=== PATIENT | female | born 1950 | race Caucasian/White ===

== ENCOUNTER → 2021-05-26 | Outpatient (CLI) | payer OTHER ==
--- NOTE | 2021-06-04 12:38 | PF ---
[address] [address] PULMONARY FUNCTION REPORT Name: SANTOS CONNELLY Room: [facility]#: [id number] Admission: 05/26/21 Attend Phys: Giuliano Solitarionenamunir Discharge: Date of : 48 Report #: [id number] THIS REPORT FOR: cc: [facility] - Clinic physician unknown [facility] - Clinic physician unknown Anderson Spencer MD ~ DATE OF VISIT: 05/26/2021 The FEV1/FVC ratio is decreased to 50% with an FVC decreased to 50%. The FEV1 is also decreased to 34%. FEF 25-75 is also markedly decreased to 17%. After the administration of a bronchodilator, there is no significant increase in any of these values. The patient's post-bronchodilator FEV1 is noted to be 1.11 liters. Only a spirometry was performed. The flow volume loop is markedly concave upwards. IMPRESSION: 1. Severe obstruction without evidence of reversibility. 2. Obstruction certainly is present, but could have been overestimated in case there is presence of restriction as well. If further evaluation is clinically indicated, then full pulmonary function test with lung volumes can be considered. <ELECTRONICALLY SIGNED> By: Anderson Spencer MD 06/04/21 1238 [id number] Spencer MD /nt
== END ==
LOC: M.PUL 10:00
PROVIDERS: ATTEND Chiropractor
DX: J44.9 Chronic obstructive pulmonary disease, unspecified (principal)